=== PATIENT | male | born 1950 | race Caucasian/White ===

== ENCOUNTER 2017-01-19 20:45 | Inpatient (IN) ==
[2017-01-19] MEDS ORDERED: cefTRIAXone 1,000 MG in SODIUM CHLORIDE 0.9% 100 ML IV STA (21:30)
[2017-01-19] MEDS ORDERED: SODIUM CHLORIDE 0.9% 500 ML IV STA (21:30)
[2017-01-19] MEDS ORDERED: methylPREDNISolone SOD SUC 125 MG/2 ML VIAL IV STA (21:30)
[2017-01-19] MEDS ORDERED: ALBUTEROL NEB SOLN 5 MG/ML 20 ML/BOTTLE CONT NEB STA (21:30)
[2017-01-19] MEDS ORDERED: cefTRIAXone 1,000 MG VIAL ONE (21:56)
[2017-01-19] MEDS ORDERED: methylPREDNISolone SOD SUC 125 MG/2 ML VIAL ONE (21:56)
[2017-01-19] MEDS ORDERED: ONDANSETRON 4 MG/2 ML VIAL ONE ×2 (21:57→21:58)
[2017-01-19] MEDS ORDERED: METOCLOPRAMIDE 10 MG/2 ML VIAL ONE (21:58)
[2017-01-19 22:05] LABS: Basophils # 0.1 10*3/uL (0.0-0.2); Basophils % 0.8 % (0.0-0.8); Eosinophils # 0.3 10*3/uL (0.0-0.87); Eosinophils % 2.9 % (0.00-10.9); Hematocrit 46.8 VOL% (42.0-52.0); Hemoglobin 16.3 GM/DL (14.0-18.0); Immature Granulocytes % 0.8 %; Lymphocytes # 1.5 10*3/uL (1.4-4.0); Lymphocytes % 12.7 % (21.2-54.2); Mean Corpuscular HGB Conc 34.8 GM/DL (32-36); Mean Corpuscular Hemoglobin 33 PG (27-34); Mean Platelet Volume 9.7 FL (9.6-12.0); Monocytes # 0.9 10*3/uL (0.11-0.8); Monocytes % 7.2 % (1.7-12.7); Neutrophils % 75.6 % (38.7-73.9); Platelet Count 198 T/CUMM (130-400); Red Blood Count 4.98 MC/CUMM (3.8-5.5); Red Cell Distribution Width 14.9 % (9.3-17.3); White Blood Count 11.8 T/CUMM (4-12)
--- NOTE | 2017-01-19 22:33 | Emergency Department Note ---
IFilomena Emily, am scribing for, and in the presence of, Td Hoskins MD 22: 29. Gato Bernal Charles R, MD, personally performed the services described in this documentation, ascribed by Estela Butt in my presence, and it is both accurate and complete . Arrival - Arrival Chief Complaint: Syncope Stated Complaint: blacked out 3 times in 2 days,dizzy, nauseated ED Nursing Triage Note: Patient states that he had a syncopal episode yesterday and today. States that he became short of breath and began having chest pain just prior to both events. Patient denies history of heart problems and complains of nausea and dizziness. Prostate enlargement and HTN. Mode of Arrival: Wheelchair Limitations: No Limitations Source: Patient, Family Time Seen by Provider: 01/19/17 21:30 - History of Present Illness HPI Narrative: Pt is a 66 y/o male who came to ED with c/o syncopal episode with chest pain and SOB that suddenly happened earlier tonight. Family reports pt blacked out, grabbing at his chest, then pt states he heard loud chirping/buzzing and eyes were closed. Waking up he was dizzy and nauseated, in which he still is in ED. Pt reports having coughing episode night before with excessive coughing and passed out, SOB and chest pain then as well. Pt was seen on of last week by Dr. Yuriy Acevedo for cough (BP was 100/80) and given steroids and abx that was taken once a day for 7 days. Pt admits to lifting weights every Tuesday/, takes Flomax once a day, and hydrochlorothiazide. Pt denies any HANSON, visual issues, or GERD. Family notes pt's memory hasn't been like the norm. Pt states he does like sleeping on left side and thinks he snores due to waking up gasping for air. Onset (ago): hour(s) Consistency: constant, intermittent Severity: moderate Severity scale (1-10): 5 Quality: aching Allergies/Adverse Reactions: Allergies Allergy/AdvReac Type Severity Reaction Status Date / Time No Known Allergies Allergy Verified 06/06/16 18:48 Home Medications: Home Medications Medication Instructions Recorded Confirmed Type Tamsulosin [Flomax] 0.4 mg PO DAILY 11/04/14 01/19/17 History hydroCHLOROthiazide 25 mg PO DAILY 06/06/16 01/19/17 History [Hydrochlorothiazide] Acetaminophen Tab [Tylenol Tab] 650 mg PO Q6H PRN #0 tablet 06/11/16 01/19/17 Rx Alum/Mag/Simeth Max Str Liquid 15 ml PO Q6H PRN #0 udcup 06/11/16 01/19/17 Rx [Mylanta Max Strength Liquid] Amoxicillin/Clav Tab [Augmentin 500 mg PO Q8H 10 Days 06/11/16 01/19/17 Rx Tab] Chlorhexidine 4% Soln [Hibiclens] 1 applic TOP DAILY #118 ml 06/11/16 01/19/17 Rx Cyclobenzaprine [Flexeril] 10 mg PO TID #30 tablet 06/11/16 01/19/17 Rx Docusate Sodium Cap [Colace Cap] 100 mg PO DAILY #20 capsule 06/11/16 01/19/17 Rx HYDROcodone/ACETAMIN 7.5-325 1 tablet PO Q6H PRN #30 tablet 06/11/16 01/19/17 Rx [[place] 7.5-325] Meloxicam [Mobic] 7.5 mg PO DAILY #30 tablet 06/11/16 01/19/17 Rx Allopurinol 300 mg PO DAILY 01/19/17 01/19/17 History Benzonatate 200 mg PO TID 01/19/17 01/19/17 History Codeine Phosphate/Guaifenesin 10 ml PO QID 01/19/17 01/19/17 History [Guaifenesin-Codeine Syrup] Review of System - Review of System 12 point system: reviewed and no additional remarkable complaints except as stated - Review of System Constitutional: Absent: chills, fever, weakness Head/Ears/Nose/Throat: Absent: nasal drainage Respiratory: Present: cough, respiratory distress Cardiovascular: Present: chest pain, syncope (2x) Gastrointestinal: Present: nausea, vomiting. Absent: abdominal pain Musculoskeletal: Absent: arm pain, back pain, leg pain, neck pain Skin: Absent: rash Neurological: Present: other (dizziness). Absent: headache, numbness, paresthesias, vertigo Medical,Surgical,& Family Hx - Medical History Cardio: History of: Hypertension Neurology: No history of: Brain Aneurysm, Seizures HEENT: History of: Eye Problem (GLASSES) Respiratory: History of: Pneumonia Genitourinary: History of: Kidney Stones Gastrointestinal: History of: Polyps (2 polyps removed 5 yrs ago) Musculoskeletal: History of: Musculoskeletal Problems (PAIN IN RIGHT KNEE) - Surgical History Neurologic Surgeries: Patient denies: Brain Aneurysm, Neurologic Surgery Abdominal Surgeries: Surgical HX of: Abdominal Surgery, Colonoscopy, Hernia Repair (at age 3-4) - Family History Family History: Reports;: Family Diabetes (FATHER), Family Stroke (PATERNAL GRANDFATHER) - Social History Smoking Status: Never smoker Frequency of Alcohol Use: Frequently Type of Drug Use: None Marital Status: Lives With:: Spouse Functional capacity: independent ambulation Exam Vital Signs: Vital Signs Temperature 98.1 F 01/19/17 21:14 Pulse Rate 86 01/19/17 23:00 Respiratory Rate 18 01/19/17 23:00 Blood Pressure 140/68 01/19/17 23:00 O2 Sat by Pulse Oximetry 100 01/19/17 23:00 - General General appearance: alert, in no apparent distress, obese - Head Head exam: Present: atraumatic, normocephalic - Eye Eye exam: Present: PERRL, EOMI - ENT ENT exam: Present: mucous membranes moist. Absent: mucous membranes dry - Neck Neck exam: Present: full ROM, trachea midline - Chest Chest inspection: Present: symmetric chest wall rise - Respiratory Respiratory exam: Present: wheezes (diffusely), other (constant coughing with bronchiole spasms) - Cardiovascular Cardiovascular exam: Present: regular rate, normal rhythm, normal heart sounds - Extremities Exam Extremities exam: Present: full ROM, pedal edema. Absent: tenderness - Neurological Exam Neurological exam: Present: alert, oriented X3, CN II-XII intact. Absent: motor sensory deficit - Psychiatric Psychiatric exam: Present: normal affect, normal mood - Skin Skin exam: Present: warm, diaphoresis (clammy) Course - Consultations Consultation #1: Dr. Leona Raines will admit for Dr. Raul Acevedo Time: 23:29 Results - Labs CBC & BMP: 01/19/17 21:41 01/19/17 21:41 Lab Results: I have reviewed the patients labs Labs: Laboratory Tests 01/19/17 01/19/17 21:41 21:41 WBC 11.8 RBC 4.98 Hgb 16.3 Hct 46.8 Neut % (Auto) 75.6 H Lymph % (Auto) 12.7 L Neut # (Auto) 9.0 H Lymph # (Auto) 1.5 [place] # (Auto) 0.9 H D-Dimer, Quantitative <= 0.5 Laboratory Tests 01/19/17 01/19/17 01/19/17 21:41 21:41 21:41 WBC 11.8 RBC 4.98 Hgb 16.3 Hct 46.8 Plt Count 198 Neut % (Auto) 75.6 H Lymph % (Auto) 12.7 L Neut # (Auto) 9.0 H [place] # (Auto) 0.9 H D-Dimer, Quantitative <= 0.5 B-Natriuretic Peptide 16 Laboratory Tests 01/19/17 21:41 Sodium 137 Potassium 3.5 Chloride 98 Carbon Dioxide 27 Anion Gap 15.5 H BUN 27 H Creatinine 1.20 BUN/Creatinine Ratio 22.00 H Glucose 114 H AST 38 H ALT 50 Total Creatine Kinase 299 CK-MB (CK-2) 3.9 H Troponin I < 0.015 - Diagnostic Findings Procedure: CT: report reviewed by me (Head wo con: There is no acute intracranial abnormality.) Disposition Clinical Impression: Vasovagal syncope, Bronchitis, Syncope and collapse Case discussed with: patient, patient's family Disposition: Still a Patient Condition: Stable Time of Disposition: 23:30
[2017-01-19 23:17] LABS: Alanine Aminotransferase 50 U/L (16-61); Albumin 3.8 G/DL (3.4-5.0); Alkaline Phosphatase 76 U/L (45-117); Aspartate Amino Transferase 38 U/L (0-37); Blood Urea Nitrogen 27 MG/DL (7-18); Glucose 114 MG/DL (74-106); Magnesium 1.9 MG/DL (1.8-2.4); Osmolality,Calculated 278.8 MOS/KG (273-304); Potassium 3.5 MMOL/L (3.5-5.1); Sodium 137 MMOL/L (136-145); Total Protein 7.2 G/DL (6.4-8.3); Troponin I Only < 0.015 NG/ML (0.00-0.045)
[2017-01-19] MEDS ORDERED: ALUMINUM/MAGNES/SIMETH MAX STR 30 ML UDCUP PO PRN (23:50)
[2017-01-19] MEDS ORDERED: ACETAMINOPHEN 325 MG TABLET PO PRN ×2 (23:50)
[2017-01-19] MEDS ORDERED: ONDANSETRON 4 MG/2 ML VIAL IV PRN (23:50)
[2017-01-19] MEDS ORDERED: ALBUTEROL/IPRATROPIUM 3 ML NEB RESP TX PRN (23:50)
--- NOTE | 2017-01-19 23:53 | EKG Report ---
Stationary ECG Study [facility] ER Test Date: 01/19/2017 9:25:27 PM Pat Name: GUNNER WALKER Department: Room: 294 Gender: M [employer] Supervisor: JOSE R : 1950 Requested by: Td Santoro Order Number: [id number] Sony MD: KIRK YATES Intervals [place] Rate: 77 P: 44 VT: 187 QRS: 36 QRSD: 114 T: 50 QT: 389 QTc: 421 Interpretive Statements SINUS RHYTHM Electronically Signed On 01-20-17 16:03:34 CDT by KIRK YATES [email or web address]
[2017-01-20] MEDS ORDERED: cefTRIAXone 1,000 MG in SODIUM CHLORIDE 0.9% 100 ML IV SCH (00:30)
[2017-01-20] MEDS ORDERED: ENOXAPARIN 40 MG/0.4 ML SYRINGE ONE (00:39)
[2017-01-20] MEDS: AMOXICILLIN/CLAV 500 MG TABLET PO SCH ×3 (00:42→16:25)
[2017-01-20] MEDS: SODIUM CHLORIDE 0.9% 1,000 ML IV SCH ×2 (00:42→14:07)
[2017-01-20 01:58] LABS: Basophils % 0.4 % (0.0-0.8); Eosinophils % 0.2 % (0.00-10.9); Hematocrit 44.7 VOL% (42.0-52.0); Hemoglobin 15.1 GM/DL (14.0-18.0); Immature Granulocytes % 0.7 %; Immature Granulocytes Absolute 0.07 #; Lymphocytes # 0.5 10*3/uL (1.4-4.0); Lymphocytes % 5.1 % (21.2-54.2); Mean Corpuscular HGB Conc 33.8 GM/DL (32-36); Mean Corpuscular Hemoglobin 32 PG (27-34); Mean Corpuscular Volume 94.9 FL (87-102); Mean Platelet Volume 10.1 FL (9.6-12.0); Monocytes # 0.1 10*3/uL (0.11-0.8); Monocytes % 1.2 % (1.7-12.7); Neutrophils # 8.9 10*3/uL (1.4-7.4); Neutrophils % 92.4 % (38.7-73.9); Platelet Count 179 T/CUMM (130-400); Red Blood Count 4.71 MC/CUMM (3.8-5.5); Red Cell Distribution Width 14.9 % (9.3-17.3); White Blood Count 9.7 T/CUMM (4-12)
[2017-01-20 02:27] LABS: Albumin 3.6 G/DL (3.4-5.0); Bilirubin,Total 0.5 MG/DL (0.2-1.0); Calcium 8.6 MG/DL (8.5-10.1); Magnesium 1.8 MG/DL (1.8-2.4); Osmolality,Calculated 286.5 MOS/KG (273-304); Potassium 3.6 MMOL/L (3.5-5.1); Risk Ratio 2.46; Total Protein 6.9 G/DL (6.4-8.3)
[2017-01-20 02:28] LABS: Troponin I Only < 0.015 NG/ML (0.00-0.045)
[2017-01-20 02:33] LABS: Band Neutrophils 2 % (0-10); Lymphocytes 3 % (20-55); Segmented Neutrophils 94 % (50-85)
[2017-01-20 02:34] LABS: Platelet Estimate Normal; Total Cells Counted 100
[2017-01-20] MEDS: methylPREDNISolone SOD SUC 40 MG/1 ML VIAL IV SCH ×3 (05:31→21:15)
--- NOTE | 2017-01-20 06:37 | CT Report ---
History is syncope The ventricles are normal in size. No acute intracranial hemorrhage, mass effect, or evidence of acute cortical stroke seen. Impression: No acute intracranial pathology seen. The CT exam was performed using one or more of the following dose reduction techniques: Automated exposure control, adjustment of the mA and/or kV according to patient size, or use of iterative reconstruction technique. PROCEDURE INTERPRETED AT [facility] DEPARTMENT OF RADIOLOGY Final Report Signed by: Dr. Alexa Lee
--- NOTE | 2017-01-20 07:48 | Ultrasound Report ---
History is syncope and dizziness Grayscale, spectral Doppler, and color flow analysis performed and interpreted There is a minimal amount of the early soft plaque in the proximal internal carotid arteries Maximum systolic velocities are 70 on the right and 51 on the left Peak systolic ratios of 0.6 in the right and 0.7 on the left There is antegrade flow in both vertebral arteries Impression: Minimal amount of plaque with less than 50% diameter stenoses bilaterally by NASCET criteria PROCEDURE INTERPRETED AT [facility] DEPARTMENT OF RADIOLOGY Final Report Signed by: Dr. Alexa Lee
--- NOTE | 2017-01-20 07:49 | XRay Report ---
History is short of breath Chest, 2 views Comparison 01/19/2017 The heart is mildly enlarged There is slight increasing interstitial markings without consolidative infiltrates seen. Impression: Minimal interstitial infiltrates versus edema PROCEDURE INTERPRETED AT [facility] DEPARTMENT OF RADIOLOGY Final Report Signed by: Dr. Alexa Lee
--- NOTE | 2017-01-20 08:19 | EKG Report ---
Stationary ECG Study [facility] Test Date: 01/20/2017 8:18:19 AM Pat Name: GUNNER WALKER Department: Room: 294 Gender: M Miller [employer] Process: DAMI : 1950 Requested by: Td Santoro Order Number: [id number] [place] MD: KIRK YATES Intervals [place] Rate: 74 P: 43 WA: 191 QRS: 13 QRSD: 110 T: 56 QT: 393 QTc: 420 Interpretive Statements SINUS RHYTHM LOW QRS VOLTAGE IN PRECORDIAL LEADS POSSIBLE ANTERIOR MYOCARDIAL INFARCTION, PROBABLY OLD Electronically Signed On 01-21-17 17:32:52 CDT by KIRK YATES [email or web address]
--- NOTE | 2017-01-20 08:32 | XRay Report ---
History short of breath Comparison 06/06/2016 Mediastinal contours unchanged No congestive failure or confluent infiltrate is seen Impression: Borderline heart size without CHF PROCEDURE INTERPRETED AT [facility] DEPARTMENT OF RADIOLOGY Final Report Signed by: Dr. Alexa Lee
[2017-01-20] MEDS ORDERED: DOCUSATE SODIUM 100 MG CAPSULE PO SCH (09:00)
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
--- NOTE | 2017-01-20 10:49 | Cardiology Consult Note ---
<Nelly Herrera E - Last Filed: 01/20/17 10:12> Assessment and Plan - Time spent with patient Time spent with patient: Greater than 30 minutes (due to assessemtn, plan, and documentation) (1) Syncope and collapse Status: Acute Assessment and plan: Suspect this is related to his bronchitis and severe coughing episodes. It's possible he's having a vasovagal syncopal response. An echocardiogram has been ordered and will be reviewed. He has had no dysrhythmias upon review of his environmental monitoring specialist. There does not seem to be a significant cardiac component to his syncope, but I will further discuss with Dr. Hirsch and await his additional recommendations regarding further cardiac workup. Current Visit: Yes (2) Hypertension Status: Chronic Assessment and plan: Fairly well controlled. He has had a couple of elevated readings since admission. His home dose of HCTZ has been continued. Will continue to monitor and adjust accordingly. Current Visit: Yes (3) Bronchitis Status: Acute Assessment and plan: Dr. Acevedo is following. He has been started on antibiotics and bronchospasm medications. 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 Hirsch PCP: Dr. Devonte Acevedo Mr. Santillan is a 66 year old male with a history of mild hypertension, kidney stones, recurrent pneumonia and bronchitis. Risk factors are significant for: Obesity, age, hypertension. He is a non-smoker and reports he only smoked for a few years while he was at [facility], and only when he would go to [employer]. He does drink wine socially. He has a family history of coronary artery disease and states his dad had CABG at age 78. Mr. Santillan presented to the emergency room last night after having 3 syncope episodes in the past 2 days. He tells me that he has had bronchitis and coughing for the past 3-4 weeks. He states that he was seen by Dr. Acevedo in clinic and was given steroids and antibiotics for treatment and felt better but subsequently became worse again. He states the past couple of days he has had some very severe coughing episodes and has subsequently blacked out on 3 occasions. Each episode of syncope is preceded by a severe coughing episode. He reports that he feels as though he someone cuts off his air and he cannot breathe. He reports he was at home cooking supper the night before last and had a coughing episode and subsequently woke up on the floor. He reports he had only had 1-2 glasses of wine prior to this and is unsure how long he was out for. He states later on that evening, he was in his bedroom and had a coughing episode and felt as if he can get his breath and then woke up on the floor. Last night, he was sitting in the living room watching [employer] [place] with his and had a severe coughing episode and his tells him that he passed out. She also reports that it looked as if he stopped breathing and he states he woke up feeling dizzy and having a buzzing sensation in his ears. At that time he was also very nauseated. He reports this episode concerned both him and his and he decided to seek further evaluation in the emergency room. Upon his arrival to the emergency room, he reports he was still nauseous and had one episode of vomiting. He denies any chest pains prior to or immediately after these episodes but states it only feels as though he could not breathe. He denies recent palpitations and had no loss of bowel or bladder function. Mr. Santillan tells me that he is in better shape now than he has been in 20 years. He reports he does weight training on Tuesdays and at noon with [facility] and has been doing this for the past 6 months. He reports he is up to 265 pounds on bench press. He denies any recent exertional angina or shortness of breath even with his workouts. Mr. Santillan tells me that his blood pressure began after he was placed on a medication for kidney stones. He reports this was subsequently stopped by Dr. David Jade after he had very high blood pressure and he was placed on hydrochlorothiazide. He reports last week at Dr. Acevedo's office, his blood pressure was 100/80. Upon arrival to our facility, his EKG shows no acute ST changes. His troponins are negative along with negative CPKs. His CK-MB is minimally elevated. BNP is 15. His head CT was negative. Carotid Dopplers showed less than 50% diameter stenosis bilaterally. His vital signs have been stable. ASSESSMENT/PLAN: 1. SYNCOPE - Suspect this is related to his bronchitis and severe coughing episodes. It's possible he's having a vasovagal syncopal response. An echocardiogram has been ordered and will be reviewed. He has had no dysrhythmias upon review of his environmental monitoring specialist. There does not seem to be a significant cardiac component to his syncope, but I will further discuss with Dr. Hirsch and await his additional recommendations regarding further cardiac workup. 2. HYPERTENSION - Fairly well controlled. He has had a couple of elevated readings since admission. His home dose of HCTZ has been continued. Will continue to monitor and adjust accordingly. 3. BRONCHITIS - Dr. Acevedo is following. He has been started on antibiotics and bronchospasm medications. CC: Devonte Acevedo, DO - Home Medications and Allergies Home Medications: Home Medications Medication Instructions Recorded Confirmed Type Tamsulosin [Flomax] 0.4 mg PO DAILY 11/04/14 01/19/17 History hydroCHLOROthiazide 25 mg PO DAILY 06/06/16 01/19/17 History [Hydrochlorothiazide] Acetaminophen Tab [Tylenol Tab] 650 mg PO Q6H PRN #0 tablet 06/11/16 01/19/17 Rx Alum/Mag/Simeth Max Str Liquid 15 ml PO Q6H PRN #0 udcup 06/11/16 01/19/17 Rx [Mylanta Max Strength Liquid] Amoxicillin/Clav Tab [Augmentin 500 mg PO Q8H 10 Days 06/11/16 01/19/17 Rx Tab] Chlorhexidine 4% Soln [Hibiclens] 1 applic TOP DAILY #118 ml 06/11/16 01/19/17 Rx Cyclobenzaprine [Flexeril] 10 mg PO TID #30 tablet 06/11/16 01/19/17 Rx Docusate Sodium Cap [Colace Cap] 100 mg PO DAILY #20 capsule 06/11/16 01/19/17 Rx HYDROcodone/ACETAMIN 7.5-325 1 tablet PO Q6H PRN #30 tablet 06/11/16 01/19/17 Rx [[place] 7.5-325] Meloxicam [Mobic] 7.5 mg PO DAILY #30 tablet 06/11/16 01/19/17 Rx Allopurinol 300 mg PO DAILY 01/19/17 01/19/17 History Benzonatate 200 mg PO TID 01/19/17 01/19/17 History Codeine Phosphate/Guaifenesin 10 ml PO QID 01/19/17 01/19/17 History [Guaifenesin-Codeine Syrup] Allergies/Adverse Reactions: Allergies Allergy/AdvReac Type Severity Reaction Status Date / Time No Known Allergies Allergy Verified 06/06/16 18:48 Review of systems: - Constitutional: Present: As per HPI. Absent: anorexia, chills, daytime sleepiness, excessive sweating, fever(s), frequent falls, headache(s), increased appetite, lethargy, malaise, night sweats, stops breathing during sleep, weakness, weight gain, weight loss, fatigue. - EENT Eyes: Present: As per HPI. Absent: blurry vision, diplopia, loss of vision Ears: Present: "buzzing" in ears following syncopal episode, As per HPI. Absent : decreased hearing, ear discharge, ear pain Nose, mouth and throat: Present: nasal congestion, As per HPI. Absent: dysphagia , epistaxis, headache(s), hoarseness, lip swelling, neck mass, neck pain, sinus pressure, sore throat, throat swelling, tongue swelling, vertigo - Cardiovascular: Present: dyspnea, as per HPI. Absent: chest pain at rest, chest pain with activity, dyspnea on exertion, edema, claudication, diaphoresis , radiating jaw, neck or arm pain, lightheadedness, orthopnea, palpitations, PND - Respiratory: Present: dyspnea, cough, wheezing, snoring, as per HPI. Absent: dyspnea on exertion, hemoptysis, pain on inspiration - Gastrointestinal: Present: nausea, vomitingAs per HPI. Absent: abdominal pain , bloating, change in bowel habits, constipation, diarrhea, heartburn, hematemesis, hematochezia, loose stools, melena, - Genitourinary: Present: As per HPI. Absent: difficulty urinating, dysuria, flank pain, hematuria, nocturia, urinary frequency, urinary incontinence - Musculoskeletal: Present: As per HPI. Absent: arthralgias, back pain, joint swelling, limited range of motion, muscle cramps, muscle weakness, myalgias - Neurological: Present: syncope, dizziness, As per HPI. Absent: abnormal gait , abnormal speech, behavioral changes, confusion, convulsions, disequilibrium, focal weakness, frequent falls, headache(s), memory loss, numbness, paresthesias , radicular pain, tremor(s) - Psychiatric: Present: As per HPI. Absent: anxiety, confusion, depression, panic attacks - Endocrine: Present: As per HPI. Absent: cold intolerance, fatigue, heat intolerance, polydipsia, polyphagia - Hematologic/Lymphatic: Present: As per HPI. Absent: easy bleeding, easy bruising, lymphadenopathy Medical,Surgical,& Family Hx - Medical History Cardio: History of: Hypertension Neurology: No history of: Brain Aneurysm, Seizures HEENT: History of: Eye Problem (GLASSES) Respiratory: History of: Bronchitis, Pneumonia Genitourinary: History of: Kidney Stones Gastrointestinal: History of: Polyps (2 polyps removed 5 yrs ago) Musculoskeletal: History of: Musculoskeletal Problems (PAIN IN RIGHT KNEE) - Surgical History Neurologic Surgeries: Patient denies: Brain Aneurysm, Neurologic Surgery Abdominal Surgeries: Surgical HX of: Abdominal Surgery, Colonoscopy, Hernia Repair (at age 3-4) - Family History Family History: Reports;: Family Diabetes (FATHER), Family Stroke (PATERNAL GRANDFATHER) - Social History Smoking Status: Never smoker Frequency of Alcohol Use: Frequently Type of Drug Use: None Marital Status: Lives With:: Spouse Functional capacity: independent ambulation Physical Examination Vital Signs Temp Pulse Resp BP Pulse Ox 98.1 F 77 22 179/88 93 L 01/19/17 21:10 01/19/17 21:10 01/19/17 21:10 01/19/17 21:10 01/19/17 21:10 Exam: General appearance: Pleasant and cooperative. Obese, no acute distress. O2 in place via NBP. Head exam: Present: normal inspection, normocephalic, atraumatic. Absent: hematoma, laceration Eye exam: Present: EOMI. Absent: conjunctival injection, nystagmus, periorbital swelling, scleral icterus, laceration to eyelids Pupils: Present: PERRL. Absent: constricted, dilated, fixed, irregular, unequal ENT exam: Present: normal exam, normal external ear exam Neck exam: Present: normal inspection. Absent: lymphadenopathy, meningismus, tenderness, thyromegaly, carotid bruit Respiratory exam: Present: clear to auscultation bilaterally. Absent: accessory muscle use, chest wall tenderness, rales, rhonchi, wheezing. Cardiovascular exam: Present: regular rate and rhythm. Absent: gallop, JVD, rubs, murmur GI/Abdominal exam: Present: normal bowel sounds, soft. Absent: distended, firm , guarding, hernia, mass, tenderness, rebound. Extremities exam: Present: normal inspection, normal capillary refill. Upper extremity pulses 2+. Lower extremity pulses 2+. Absent: calf tenderness, edema Musculoskeletal: Present: No Fluid Collection, No Pain, Normal Range of Motion Back exam: Present: normal inspection. Absent: muscle spasm, vertebral tenderness Neurological exam: Present: alert, oriented X3, grossly intact without resting or essential tremor Psychiatric exam: Present: normal affect, normal mood Skin exam: Present: normal color, warm, dry, intact except for small abrasion to right elbow, approximately dime to nickel size in diameter. Absent: cyanosis , diaphoretic, rash, urticaria Result/EKG - Labs CBC & BMP: 01/20/17 01:36 01/20/17 01:36 Lab Results: I have reviewed the past 24 hour labs Labs: Laboratory Results - last 24 hr 01/19/17 01/19/17 01/19/17 21:41 21:41 21:41 WBC 11.8 RBC 4.98 Hgb 16.3 Hct 46.8 MCV 94.0 MCH 33 MCHC 34.8 RDW 14.9 Plt Count 198 MPV 9.7 Neut % (Auto) 75.6 H Lymph % (Auto) 12.7 L Meeker % (Auto) 7.2 Eos % (Auto) 2.9 Baso % (Auto) 0.8 Neut # (Auto) 9.0 H Lymph # (Auto) 1.5 Meeker # (Auto) 0.9 H Eos # (Auto) 0.3 Baso # (Auto) 0.1 Total Counted Immature Gran % 0.8 Nucleated RBC % 0.0 Immature Gran # 0.10 Segmented Neutrophils Band Neutrophils Lymphocytes Monocytes Nucleated RBCs # 0.00 Platelet Estimate Immature Plt Fraction 0.0 D-Dimer, Quantitative <= 0.5 Sodium 137 Potassium 3.5 Chloride 98 Carbon Dioxide 27 Anion Gap 15.5 H BUN 27 H Creatinine 1.20 GFR Calculation 98 BUN/Creatinine Ratio 22.00 H Glucose 114 H POC Glucose Calculated Osmolality 278.8 Calcium 9.0 Magnesium 1.9 Total Bilirubin 0.50 AST 38 H ALT 50 Alkaline Phosphatase 76 Total Creatine Kinase 299 CK-MB (CK-2) 3.9 H Troponin I < 0.015 B-Natriuretic Peptide Total Protein 7.2 Albumin 3.8 Globulin 3.4 Albumin/Globulin Ratio 1.1 Triglycerides Cholesterol LDL Cholesterol VLDL Cholesterol HDL Cholesterol Heart Disease Risk Ratio 01/19/17 01/19/17 01/20/17 21:41 23:37 01:36 WBC RBC Hgb Hct MCV MCH MCHC RDW Plt Count MPV Neut % (Auto) Lymph % (Auto) Meeker % (Auto) Eos % (Auto) Baso % (Auto) Neut # (Auto) Lymph # (Auto) Meeker # (Auto) Eos # (Auto) Baso # (Auto) Total Counted Immature Gran % Nucleated RBC % Immature Gran # Segmented Neutrophils Band Neutrophils Lymphocytes Monocytes Nucleated RBCs # Platelet Estimate Immature Plt Fraction D-Dimer, Quantitative Sodium Potassium Chloride Carbon Dioxide Anion Gap BUN Creatinine GFR Calculation BUN/Creatinine Ratio Glucose POC Glucose 130 H Calculated Osmolality Calcium Magnesium Total Bilirubin AST ALT Alkaline Phosphatase Total Creatine Kinase 270 CK-MB (CK-2) 3.7 H Troponin I < 0.015 B-Natriuretic Peptide 16 Total Protein Albumin Globulin Albumin/Globulin Ratio Triglycerides Cholesterol LDL Cholesterol VLDL Cholesterol HDL Cholesterol Heart Disease Risk Ratio 01/20/17 01/20/17 01/20/17 01:36 01:36 01:36 WBC 9.7 RBC 4.71 Hgb 15.1 Hct 44.7 MCV 94.9 MCH 32 MCHC 33.8 RDW 14.9 Plt Count 179 MPV 10.1 Neut % (Auto) 92.4 H Lymph % (Auto) 5.1 L Meeker % (Auto) 1.2 L Eos % (Auto) 0.2 Baso % (Auto) 0.4 Neut # (Auto) 8.9 H Lymph # (Auto) 0.5 L Meeker # (Auto) 0.1 L Eos # (Auto) 0.0 Baso # (Auto) 0.0 Total Counted 100 Immature Gran % 0.7 Nucleated RBC % 0.0 Immature Gran # 0.07 Segmented Neutrophils 94 H Band Neutrophils 2 Lymphocytes 3 L Monocytes 1 L Nucleated RBCs # 0.00 Platelet Estimate Normal Immature Plt Fraction 0.0 D-Dimer, Quantitative Sodium 139 Potassium 3.6 Chloride 101 Carbon Dioxide 27 Anion Gap 14.6 BUN 28 H Creatinine 1.30 GFR Calculation 87 BUN/Creatinine Ratio 21.00 H Glucose 169 H POC Glucose Calculated Osmolality 286.5 Calcium 8.6 Magnesium 1.8 Total Bilirubin 0.50 AST 35 ALT 47 Alkaline Phosphatase 75 Total Creatine Kinase CK-MB (CK-2) Troponin I B-Natriuretic Peptide 15 Total Protein 6.9 Albumin 3.6 Globulin 3.3 Albumin/Globulin Ratio 1.0 L Triglycerides 125 Cholesterol 177 LDL Cholesterol 78.0 VLDL Cholesterol 25.0 HDL Cholesterol 72 H Heart Disease Risk Ratio 2.46 - EKG EKG results: interpreted by me, sinus rhythm <Shelia Hirsch - Last Filed: 01/20/17 12:56> Assessment and Plan (1) Cough syncope Status: Acute Assessment and plan: Recommend event monitor as outpatient. No further workup at this time. Current Visit: Yes (2) Obesity Status: Chronic Current Visit: Yes Qualifiers: Obesity type: due to excess calories Body mass index: BMI 45.0-49.9 (3) Bronchitis Status: Acute Assessment and plan: Appears to be. The precipitating factor of his cough. Given the fact that he appears to have cough syncope would recommend that his cough be treated aggressively and he be particularly called cautious with high risk behavior during the time of his bronchitis and coughing. Particularly flying driving etc. Current Visit: Yes (4) Hypertension Status: Chronic Assessment and plan: Due to the patient's history of nephrolithiasis consider changing this medication continue for now Current Visit: Yes History of Present Illness - Data of Consult Patient: new to practice - Consult Narrative History of present illness: Mr. Santillan is a 66 year old male with the above history of present illness. He has had classic cough syncope 3 now once witnessed by his . 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 He denies any cardiac symptoms such as chest pain he has no associated nausea or diaphoresis. He has not had any palpitations. He has reported problems with hypokalemia hand cramps and leg cramps etc. while getting too hot and sweaty and taking hydrochlorothiazide. It seems that is the only syncopal episodes have been while coughing with his associated bronchitis. He is very active and works out at the gym and has not had syncope there despite being able to bench press almost 300 pounds which is his goal by [place]. Given his propensity to fly and these episodes I feel that he may benefit from an event monitor just to document no bradycardia. I performed carotid sinus massage at the bedside and he did not experience any change in his heart rate. I reviewed his echocardiogram and his carotid Dopplers before this. His echocardiogram is normal within the limitations provided. He does not have pulmonary hypertension or right-sided chamber enlargement. I recommended that he wear an event monitor for 30 days and follow -up in 1 month. From a cardiovascular standpoint nothing further to add at this time. We will continue to monitor on telemetry while in the hospital. CC: Devonte Acevedo, Review of systems: Syncope as per HPI. All other review of systems as above Physical Examination Vital Signs Temp Pulse Resp BP Pulse Ox 98.1 F 77 22 179/88 93 L 01/19/17 21:10 01/19/17 21:10 01/19/17 21:10 01/19/17 21:10 01/19/17 21:10 Result/EKG - Labs CBC & BMP: 01/20/17 01:36 01/20/17 01:36 Labs: Laboratory Results - last 24 hr 01/19/17 01/19/17 01/19/17 21:41 21:41 21:41 WBC 11.8 RBC 4.98 Hgb 16.3 Hct 46.8 MCV 94.0 MCH 33 MCHC 34.8 RDW 14.9 Plt Count 198 MPV 9.7 Neut % (Auto) 75.6 H Lymph % (Auto) 12.7 L Meeker % (Auto) 7.2 Eos % (Auto) 2.9 Baso % (Auto) 0.8 Neut # (Auto) 9.0 H Lymph # (Auto) 1.5 Meeker # (Auto) 0.9 H Eos # (Auto) 0.3 Baso # (Auto) 0.1 Total Counted Immature Gran % 0.8 Nucleated RBC % 0.0 Immature Gran # 0.10 Segmented Neutrophils Band Neutrophils Lymphocytes Monocytes Nucleated RBCs # 0.00 Platelet Estimate Immature Plt Fraction 0.0 D-Dimer, Quantitative <= 0.5 Sodium 137 Potassium 3.5 Chloride 98 Carbon Dioxide 27 Anion Gap 15.5 H BUN 27 H Creatinine 1.20 GFR Calculation 98 BUN/Creatinine Ratio 22.00 H Glucose 114 H POC Glucose Calculated Osmolality 278.8 Calcium 9.0 Magnesium 1.9 Total Bilirubin 0.50 AST 38 H ALT 50 Alkaline Phosphatase 76 Total Creatine Kinase 299 CK-MB (CK-2) 3.9 H Troponin I < 0.015 B-Natriuretic Peptide Total Protein 7.2 Albumin 3.8 Globulin 3.4 Albumin/Globulin Ratio 1.1 Triglycerides Cholesterol LDL Cholesterol VLDL Cholesterol HDL Cholesterol Heart Disease Risk Ratio 01/19/17 01/19/17 01/20/17 21:41 23:37 01:36 WBC RBC Hgb Hct MCV MCH MCHC RDW Plt Count MPV Neut % (Auto) Lymph % (Auto) Meeker % (Auto) Eos % (Auto) Baso % (Auto) Neut # (Auto) Lymph # (Auto) Meeker # (Auto) Eos # (Auto) Baso # (Auto) Total Counted Immature Gran % Nucleated RBC % Immature Gran # Segmented Neutrophils Band Neutrophils Lymphocytes Monocytes Nucleated RBCs # Platelet Estimate Immature Plt Fraction D-Dimer, Quantitative Sodium Potassium Chloride Carbon Dioxide Anion Gap BUN Creatinine GFR Calculation BUN/Creatinine Ratio Glucose POC Glucose 130 H Calculated Osmolality Calcium Magnesium Total Bilirubin AST ALT Alkaline Phosphatase Total Creatine Kinase 270 CK-MB (CK-2) 3.7 H Troponin I < 0.015 B-Natriuretic Peptide 16 Total Protein Albumin Globulin Albumin/Globulin Ratio Triglycerides Cholesterol LDL Cholesterol VLDL Cholesterol HDL Cholesterol Heart Disease Risk Ratio 01/20/17 01/20/17 01/20/17 01:36 01:36 01:36 WBC 9.7 RBC 4.71 Hgb 15.1 Hct 44.7 MCV 94.9 MCH 32 MCHC 33.8 RDW 14.9 Plt Count 179 MPV 10.1 Neut % (Auto) 92.4 H Lymph % (Auto) 5.1 L [place] % (Auto) 1.2 L Eos % (Auto) 0.2 Baso % (Auto) 0.4 Neut # (Auto) 8.9 H Lymph # (Auto) 0.5 L Meeker # (Auto) 0.1 L Eos # (Auto) 0.0 Baso # (Auto) 0.0 Total Counted 100 Immature Gran % 0.7 Nucleated RBC % 0.0 Immature Gran # 0.07 Segmented Neutrophils 94 H Band Neutrophils 2 Lymphocytes 3 L Monocytes 1 L Nucleated RBCs # 0.00 Platelet Estimate Normal Immature Plt Fraction 0.0 D-Dimer, Quantitative Sodium 139 Potassium 3.6 Chloride 101 Carbon Dioxide 27 Anion Gap 14.6 BUN 28 H Creatinine 1.30 GFR Calculation 87 BUN/Creatinine Ratio 21.00 H Glucose 169 H POC Glucose Calculated Osmolality 286.5 Calcium 8.6 Magnesium 1.8 Total Bilirubin 0.50 AST 35 ALT 47 Alkaline Phosphatase 75 Total Creatine Kinase CK-MB (CK-2) Troponin I B-Natriuretic Peptide 15 Total Protein 6.9 Albumin 3.6 Globulin 3.3 Albumin/Globulin Ratio 1.0 L Triglycerides 125 Cholesterol 177 LDL Cholesterol 78.0 VLDL Cholesterol 25.0 HDL Cholesterol 72 H Heart Disease Risk Ratio 2.46
[2017-01-20] MEDS: CYCLOBENZAPRINE 10 MG TABLET PO SCH ×3 (12:06→21:14)
[2017-01-20] MEDS: guaiFENesin/CODEINE 5 ML LIQUID PO SCH ×4 (12:06→21:47)
[2017-01-20] MEDS: hydroCHLOROthiazide 25 MG TABLET PO SCH (12:20)
[2017-01-20] MEDS: BENZONATATE 100 MG CAPSULE PO SCH ×3 (12:20→21:14)
[2017-01-20] MEDS: MELOXICAM 7.5 MG TABLET PO SCH (12:20)
[2017-01-20] MEDS: DOCUSATE SODIUM 100 MG CAPSULE PO SCH ×2 (12:21→21:15)
[2017-01-20] MEDS: TAMSULOSIN 0.4 MG CAPSULE PO SCH (12:21)
[2017-01-20] MEDS: ALLOPURINOL 300 MG TABLET PO SCH (12:21)
[2017-01-20] MEDS: PANTOPRAZOLE 40 MG VIAL IV SCH (12:22)
[2017-01-20] MEDS: ENOXAPARIN 40 MG/0.4 ML SYRINGE SUBCUT SCH (12:22)
--- NOTE | 2017-01-20 12:24 | ECHO Report ---
Damian Santillan Exam Date: 01/20/2017 10:50 Referring Physician: Technologist: taras Sawant ARDMS, RVT Age: 66 Ht (in): 72 Wt (lb): 341 Gender: M Exam Location: [facility] Echo Indications: Syncope and collapse BP: 134 / 74 HR: Rhythm: Sinus Technical Quality: average IMPRESSIONS Overall ejection fraction is 55%. There is poor endocardial resolution which may limit regional wall assessment. Diastolic parameters are most consistent with grade 1 diastolic dysfunction or impaired relaxation. There is borderline mild left ventricular hypertrophy. No valvular abnormality MEASUREMENTS (Male / Female) Normal Values 2D ECHO LV Diastolic Diameter PLAX 5.3 cm 4.2 - 5.9 / 3.9 - 5.3 cm LV Systolic Diameter PLAX 3.1 cm LV Fractional Shortening PLAX 40.2 % IVS Diastolic Thickness 1.3 cm 0.6 - 1.0 / 0.6 - 0.9 cm LVPW Diastolic Thickness 1.1 cm 0.6 - 1.0 / 0.6 - 0.9 cm RV Internal Dim ED PLAX 4.0 cm Aortic Root Diameter 4.4 cm LA Systolic Diameter LX 3.9 cm 3.0 - 4.0 / 2.7 - 3.8 cm DOPPLER TR Peak Velocity 128.0 cm/s TR Peak Gradient 6.6 mmHg FINDINGS Left Ventricle Overall ejection fraction is 55%. There is no regional wall motion abnormality. There is poor endocardial resolution which may limit regional wall assessment. Diastolic parameters are most consistent with grade 1 diastolic dysfunction or impaired relaxation. There is borderline mild left ventricular hypertrophy Right Ventricle The right ventricular cavity is at the upper limits of normal the function is normal Right Atrium The left atrium is normal Left Atrium Left atrium is normal Mitral Valve The mitral valve is normal there is no stenosis or regurgitation Aortic Valve Normal with no stenosis or regurgitation Tricuspid Valve Normal. There is trivial tricuspid regurgitation with a peak velocity 1.28 m per sec which corresponds with a right ventricular systolic pressure of 7 mmHg plus right atrial pressure Pulmonic Valve Normal with no stenosis or regurgitation Pericardium Normal Aorta Limited visualization of the thoracic aorta is normal Shelia Hirsch (Electronically Signed) Final Date: 20 January 2017 12:23
[2017-01-20] MEDS: CHLORHEXIDINE 4% SOLN 118 ML BOTTLE TOP SCH (12:57)
--- NOTE | 2017-01-20 15:35 | EKG Report ---
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
[2017-01-21] MEDS: AMOXICILLIN/CLAV 500 MG TABLET PO SCH ×2 (00:39→09:11)
[2017-01-21 05:05] LABS: Basophils % 0.1 % (0.0-0.8); Hematocrit 43.6 VOL% (42.0-52.0); Hemoglobin 14.9 GM/DL (14.0-18.0); Immature Granulocytes Absolute 0.18 #; Lymphocytes # 0.7 10*3/uL (1.4-4.0); Lymphocytes % 3.6 % (21.2-54.2); Mean Corpuscular HGB Conc 34.2 GM/DL (32-36); Mean Corpuscular Hemoglobin 33 PG (27-34); Mean Corpuscular Volume 95.6 FL (87-102); Mean Platelet Volume 10.5 FL (9.6-12.0); Monocytes # 0.4 10*3/uL (0.11-0.8); Neutrophils # 17.5 10*3/uL (1.4-7.4); Neutrophils % 93.3 % (38.7-73.9); Platelet Count 194 T/CUMM (130-400); Red Blood Count 4.56 MC/CUMM (3.8-5.5); Red Cell Distribution Width 14.9 % (9.3-17.3); White Blood Count 18.7 T/CUMM (4-12)
[2017-01-21 05:30] LABS: Band Neutrophils 1 % (0-10); Hypochromasia 1+; Lymphocytes 4 % (20-55); Segmented Neutrophils 94 % (50-85); Total Cells Counted 100
[2017-01-21 05:31] LABS: Platelet Estimate Adequate
[2017-01-21 05:36] LABS: Calcium 8.3 MG/DL (8.5-10.1); Magnesium 2.1 MG/DL (1.8-2.4); Osmolality,Calculated 286.4 MOS/KG (273-304); Potassium 4.4 MMOL/L (3.5-5.1)
[2017-01-21] MEDS: methylPREDNISolone SOD SUC 40 MG/1 ML VIAL IV SCH (07:12)
[2017-01-21] MEDS: SODIUM CHLORIDE 0.9% 1,000 ML IV SCH (07:20)
[2017-01-21 08:53] VITALS: BP 155/80
[2017-01-21] MEDS: MELOXICAM 7.5 MG TABLET PO SCH (09:11)
[2017-01-21] MEDS: TAMSULOSIN 0.4 MG CAPSULE PO SCH (09:11)
[2017-01-21] MEDS: ALLOPURINOL 300 MG TABLET PO SCH (09:12)
[2017-01-21] MEDS: BENZONATATE 100 MG CAPSULE PO SCH (09:12)
[2017-01-21] MEDS: hydroCHLOROthiazide 25 MG TABLET PO SCH (09:12)
[2017-01-21] MEDS: guaiFENesin/CODEINE 5 ML LIQUID PO SCH (09:13)
[2017-01-21] MEDS: CYCLOBENZAPRINE 10 MG TABLET PO SCH (09:13)
[2017-01-21] MEDS: DOCUSATE SODIUM 100 MG CAPSULE PO SCH (09:13)
[2017-01-21] MEDS: CHLORHEXIDINE 4% SOLN 118 ML BOTTLE TOP SCH (09:14)
[2017-01-21] MEDS: PANTOPRAZOLE 40 MG VIAL IV SCH (09:14)
[2017-01-21] MEDS: ENOXAPARIN 40 MG/0.4 ML SYRINGE SUBCUT SCH (09:14)
--- NOTE | 2017-01-21 09:20 | Discharge Summary ---
Hospital Course - Hospital Course Hospital Course: Patient came to the hospital after having had 3 syncopal episodes. It was felt that these were vasovagal spells associated with acute, severe paroxysmal coughing episodes. Did have a full cardiology workup including an echocardiogram, carotid duplex as well as close monitoring. He did well throughout the hospitalization and had no further episodes. Remained in sinus rhythm. He never had any shay chest pain and enzymes remained grossly normal. Has been sleeping well in the hospital and not had any shortness of breath. At this time and planning on discharging him. 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 Is morbidly obese but has initiated workouts at home and I recommended he continue these at a slower pace and digital marketer weight. He did voice agreement. Is to follow with me in 2 weeks and also will follow with cardiology as directed. Appreciate cardiology's assistance on this case. We did let the patient go home and medications were given to him. I am going to treat him with antibiotics for several days as he had seen me in my clinic approximately 10 days ago with coughing, which was now recurrent and I am going to treat him for bronchitis. Diagnosis - Discharge Diagnosis (1) Bronchitis Status: Acute (2) Syncope and collapse Status: Resolved (3) Vasovagal syncope Status: Resolved Specialty Discharge - Follow Up or Referrals Follow up with: Devonte Acevedo DO [Primary Care Provider] - 02/03/17 1:00 pm (Return to clinic sooner than 2 weeks if symptoms worsen) Shelia Hirsch DO [Physician] - 1 Month (Discharge home with 30 day event monitor. Follow up with Dr. Hirsch in 1 month. ) Discharge Plan - Discharge Data Disposition: Disch To Home/Self Care Condition at Discharge: Stable Discharge Diet: advance to your usual diet Activity: increase activity as tolerated Hygiene: no restrictions Weight Bearing at Discharge: full weight bearing Driving: no restrictions Contact your physician if you experience:: fever over 101, Shortness of breath - Discharge Medications New Cyclobenzaprine [Flexeril] 10 mg PO BEDTIME PRN #20 tablet PRN Reason: muscle spasm Levofloxacin Tab [Levaquin Tab] 500 mg PO DAILY #8 tablet predniSONE TAB [PredniSONE] 10 mg PO DIRECTED #20 tablet Continue Tamsulosin [Flomax] 0.4 mg PO DAILY Acetaminophen Tab [Tylenol Tab] 650 mg PO Q6H PRN #0 tablet PRN Reason: Pain Mild (1-3) And/Or Fever Docusate Sodium Cap [Colace Cap] 100 mg PO DAILY #20 capsule Benzonatate 200 mg PO TID Codeine Phosphate/Guaifenesin [Guaifenesin-Codeine Syrup] 10 ml PO QID hydroCHLOROthiazide [Hydrochlorothiazide] 25 mg PO DAILY Alum/Mag/Simeth Max Str Liquid [Mylanta Max Strength Liquid] 15 ml PO Q6H PRN #0 udcup PRN Reason: Dyspepsia Chlorhexidine 4% Soln [Hibiclens] 1 applic TOP DAILY #118 ml Meloxicam [Mobic] 7.5 mg PO DAILY #30 tablet Allopurinol 300 mg PO DAILY Changed HYDROcodone/ACETAMIN 7.5-325 [[place] 7.5-325] 1 tablet PO BID PRN #30 tablet PRN Reason: Pain Moderate (4-7) Discontinued Amoxicillin/Clav Tab [Augmentin Tab] 500 mg PO Q8H 10 Days Cyclobenzaprine [Flexeril] 10 mg PO TID #30 tablet - Follow Up or Referral Follow Up: Devonte Acevedo DO [Primary Care Provider] - 02/03/17 1:00 pm (Return to clinic sooner than 2 weeks if symptoms worsen) Shelia Hirsch DO [Physician] - 1 Month (Discharge home with 30 day event monitor. Follow up with Dr. Hirsch in 1 month. ) - Forms/Instructions Instructions: Syncope (GEN), Acute Bronchitis (GEN) Exam - Constitutional Vitals: Period Temp Pulse Resp BP Sys/Jung Pulse Ox Last 24 Hr 97 F-98.6 F 64-87 18-22 132-163/60-83 94-98 Discharge Results Procedures and tests throughout hospitalization: Pending Orders 01/19/17 21:30 Urinalysis Stat 01/19/17 21:41 Blood Culture Stat Labs on day of discharge: Labs from last 24 hours 01/21/17 01/21/17 03:33 03:33 WBC 18.7 H D RBC 4.56 Hgb 14.9 Hct 43.6 MCV 95.6 MCH 33 MCHC 34.2 RDW 14.9 Plt Count 194 MPV 10.5 Neut % (Auto) 93.3 H Lymph % (Auto) 3.6 L [place] % (Auto) 2.0 Eos % (Auto) 0.0 Baso % (Auto) 0.1 Neut # (Auto) 17.5 H Lymph # (Auto) 0.7 L [place] # (Auto) 0.4 Eos # (Auto) 0.0 Baso # (Auto) 0.0 Total Counted 100 Immature Gran % 1.0 Nucleated RBC % 0.0 Immature Gran # 0.18 Segmented Neutrophils 94 H Band Neutrophils 1 Lymphocytes 4 L Monocytes 1 L Nucleated RBCs # 0.00 Platelet Estimate Adequate Immature Plt Fraction 0.0 Hypochromasia 1+ Sodium 140 Potassium 4.4 Chloride 105 Carbon Dioxide 27 Anion Gap 12.4 BUN 26 H Creatinine 1.30 GFR Calculation 87 BUN/Creatinine Ratio 20.00 Glucose 152 H Calculated Osmolality 286.4 Calcium 8.3 L Magnesium 2.1 Preliminary micro results at discharge 01/19/17 21:41 Blood Culture - Preliminary Blood No growth at 1 day 01/19/17 22:16 Blood Culture - Preliminary Blood No growth at 1 day - Imaging and Cardiology Cardiology Procedure: report reviewed by nd DS: Provider Date of admission: 01/19/17 23:30 Primary care physician: Devonte Acevedo DO Attending physician on admission: Devonte Acevedo DO Consults: 01/19/17 23:50 Consult to Case Mgmt/Social Srvs [CONS] Routine Reason for Case Mgmt/Social Srvs: Discharge Planning 01/20/17 06:34 Consult to Physician [CONS] Routine Comment: syncope Consulting Provider: Cardiology - [facility] Person Notified: [email or web address] Date Notified: 01/20/17 Time Notified: 07:30 Discharging clinician: Devonte Acevedo DO
== END 2017-01-21 11:17 | disposition home or self-care (01) | DRG 202 ==
LOC: N.ED 20:45 → N.EDINP 23:30 → N.TELEN 23:59
PROVIDERS: ADMIT Family Medicine; ATTEND Family Medicine

== ENCOUNTER 2019-03-26 14:32 | Observation (INO) ==
[2019-03-26] MEDS ORDERED: ACETAMINOPHEN 325 MG TABLET PO PRN (14:55)
[2019-03-26] MEDS ORDERED: DOCUSATE SODIUM 100 MG CAPSULE PO PRN (14:55)
[2019-03-26] MEDS ORDERED: ONDANSETRON 4 MG/2 ML VIAL IV PRN (14:55)
[2019-03-26] MEDS ORDERED: INFLUENZA VIRUS VACCINE 0.5 ML SYRINGE IM ONE (16:01)
[2019-03-26] MEDS: SODIUM CHLORIDE 0.9% 1,000 ML IV SCH (16:26)
[2019-03-26 16:43] LABS: Basophils # 0.1 10*3/uL (0.0-0.2); Basophils % 0.7 % (0.0-0.8); Eosinophils # 0.2 10*3/uL (0.0-0.87); Eosinophils % 2.6 % (0.00-10.9); Hematocrit 48.2 VOL% (42.0-52.0); Immature Granulocytes % 0.6 %; Immature Granulocytes Absolute 0.04 #; Lymphocytes # 1.3 10*3/uL (1.4-4.0); Lymphocytes % 17.4 % (21.2-54.2); Mean Corpuscular HGB Conc 33.2 GM/DL (32-36); Mean Corpuscular Volume 98.8 FL (87-102); Mean Platelet Volume 9.4 FL (9.6-12.0); Monocytes % 12.1 % (1.7-12.7); Neutrophils % 66.6 % (38.7-73.9); Platelet Count 238 T/CUMM (130-400); Red Blood Count 4.88 MC/CUMM (3.8-5.5); Red Cell Distribution Width 14.5 % (9.3-17.3); White Blood Count 7.3 T/CUMM (4-12)
[2019-03-26] MEDS ORDERED: DILTIAZEM 50 MG/10 ML VIAL IV ONE (17:10)
[2019-03-26 17:13] LABS: Albumin 3.2 G/DL (3.4-5.0); Bilirubin,Total 0.8 MG/DL (0.2-1.0); Calcium 8.8 MG/DL (8.5-10.1); Osmolality,Calculated 278.1 MOS/KG (273-304); Total Protein 7.4 G/DL (6.4-8.3)
[2019-03-26 17:24] LABS: Troponin I < 0.015 NG/ML (0.00-0.045)
[2019-03-26] MEDS: dilTIAZem Drip 125 MG/125 ML PREMIX IV SCH (17:49)
[2019-03-26] MEDS: HEPARIN DRIP 25,000 UNITS/500 ML PREMIX IV SCH (17:52)
[2019-03-26] MEDS: ASCORBIC ACID 500 MG TABLET PO SCH ×2 (19:04→21:04)
[2019-03-26] MEDS: SERTRALINE 50 MG TABLET PO SCH (21:04)
[2019-03-26] MEDS: BENZONATATE 100 MG CAPSULE PO SCH (21:04)
[2019-03-26] MEDS: DEXTROMETHORPHAN ER 6 MG/ML 90 ML/BOTTLE PO SCH (21:04)
[2019-03-26] MEDS: CLORAZEPATE 3.75 MG TABLET PO SCH (21:04)
[2019-03-26] MEDS: TAMSULOSIN 0.4 MG CAPSULE PO SCH (21:04)
[2019-03-27] MEDS: dilTIAZem Drip 125 MG/125 ML PREMIX IV SCH (04:21)
[2019-03-27 05:48] LABS: Basophils # 0.1 10*3/uL (0.0-0.2); Basophils % 0.9 % (0.0-0.8); Eosinophils # 0.2 10*3/uL (0.0-0.87); Eosinophils % 3.2 % (0.00-10.9); Hematocrit 44.8 VOL% (42.0-52.0); Hemoglobin 14.9 GM/DL (14.0-18.0); Immature Granulocytes % 0.5 %; Immature Granulocytes Absolute 0.03 #; Lymphocytes # 1.3 10*3/uL (1.4-4.0); Lymphocytes % 23.9 % (21.2-54.2); Mean Corpuscular HGB Conc 33.3 GM/DL (32-36); Mean Corpuscular Volume 98.5 FL (87-102); Mean Platelet Volume 9.2 FL (9.6-12.0); Monocytes % 10.9 % (1.7-12.7); Neutrophils % 60.6 % (38.7-73.9); Platelet Count 212 T/CUMM (130-400); Red Blood Count 4.55 MC/CUMM (3.8-5.5); Red Cell Distribution Width 14.5 % (9.3-17.3); White Blood Count 5.6 T/CUMM (4-12)
[2019-03-27 06:06] LABS: Calcium 8.6 MG/DL (8.5-10.1); Osmolality,Calculated 281.8 MOS/KG (273-304)
[2019-03-27] MEDS ORDERED: ALBUTEROL/IPRATROPIUM 3 ML NEB RESP TX PRN (08:11)
[2019-03-27] MEDS: DEXTROMETHORPHAN ER 6 MG/ML 90 ML/BOTTLE PO SCH ×2 (08:12→21:53)
[2019-03-27] MEDS: CLORAZEPATE 3.75 MG TABLET PO SCH ×2 (08:13→21:51)
[2019-03-27] MEDS: PANTOPRAZOLE 40 MG TABLET PO SCH (08:13)
[2019-03-27] MEDS: ASCORBIC ACID 500 MG TABLET PO SCH ×2 (08:13→21:51)
[2019-03-27] MEDS: hydroCHLOROthiazide 25 MG TABLET PO SCH (08:13)
[2019-03-27] MEDS: SERTRALINE 50 MG TABLET PO SCH (08:13)
[2019-03-27] MEDS: ASPIRIN EC 81 MG TABLET PO SCH (08:14)
[2019-03-27] MEDS: TAMSULOSIN 0.4 MG CAPSULE PO SCH ×2 (08:14→21:51)
[2019-03-27] MEDS: BENZONATATE 100 MG CAPSULE PO SCH ×2 (08:14→21:51)
[2019-03-27] MEDS: cefTRIAXone 1,000 MG in SYRINGE 1 EACH IV SCH (08:24)
[2019-03-27] MEDS: ALLOPURINOL 300 MG TABLET PO SCH (08:24)
[2019-03-27] MEDS: FLUTICASONE 50 MCG NASAL SPRAY 16 GM BOTTLE BOTH NARES SCH ×2 (10:22→21:53)
[2019-03-27] MEDS: METOPROLOL TARTRATE 25 MG TABLET PO SCH ×2 (12:21→21:51)
[2019-03-27] MEDS: SODIUM CHLORIDE 0.9% 1,000 ML IV SCH (12:22)
[2019-03-27] MEDS: HEPARIN 5,000 UNIT/1 ML VIAL IV PRN (21:51)
[2019-03-27] MEDS: HEPARIN DRIP 25,000 UNITS/500 ML PREMIX IV SCH (21:54)
[2019-03-28 02:20] LABS: Basophils # 0.1 10*3/uL (0.0-0.2); Eosinophils # 0.2 10*3/uL (0.0-0.87); Eosinophils % 2.9 % (0.00-10.9); Hematocrit 44.2 VOL% (42.0-52.0); Hemoglobin 14.6 GM/DL (14.0-18.0); Immature Granulocytes % 0.5 %; Immature Granulocytes Absolute 0.03 #; Lymphocytes # 1.5 10*3/uL (1.4-4.0); Lymphocytes % 23.9 % (21.2-54.2); Mean Corpuscular Volume 99.8 FL (87-102); Mean Platelet Volume 9.3 FL (9.6-12.0); Monocytes % 9.7 % (1.7-12.7); Platelet Count 203 T/CUMM (130-400); Red Blood Count 4.43 MC/CUMM (3.8-5.5); Red Cell Distribution Width 14.4 % (9.3-17.3); White Blood Count 6.3 T/CUMM (4-12)
[2019-03-28 02:34] LABS: Calcium 8.4 MG/DL (8.5-10.1); Osmolality,Calculated 281.7 MOS/KG (273-304)
[2019-03-28] MEDS: HEPARIN 5,000 UNIT/1 ML VIAL IV PRN (03:45)
[2019-03-28] MEDS: cefTRIAXone 1,000 MG in SYRINGE 1 EACH IV SCH (08:43)
[2019-03-28] MEDS: METOPROLOL TARTRATE 25 MG TABLET PO SCH ×2 (08:53→21:25)
[2019-03-28] MEDS ORDERED: PROPOFOL 200 MG/20 ML VIAL IV ONE (12:28)
[2019-03-28] MEDS ORDERED: LIDOCAINE 2% 5 ML VIAL ONE (12:28)
[2019-03-28] MEDS: BENZONATATE 100 MG CAPSULE PO SCH ×2 (13:15→21:24)
[2019-03-28] MEDS: CLORAZEPATE 3.75 MG TABLET PO SCH ×2 (13:16→21:25)
[2019-03-28] MEDS: hydroCHLOROthiazide 25 MG TABLET PO SCH (13:16)
[2019-03-28] MEDS: ALLOPURINOL 300 MG TABLET PO SCH (13:16)
[2019-03-28] MEDS: ASCORBIC ACID 500 MG TABLET PO SCH ×2 (13:16→21:24)
[2019-03-28] MEDS: TAMSULOSIN 0.4 MG CAPSULE PO SCH ×2 (13:16→21:24)
[2019-03-28] MEDS: ASPIRIN EC 81 MG TABLET PO SCH (13:16)
[2019-03-28] MEDS: SERTRALINE 50 MG TABLET PO SCH (13:17)
[2019-03-28] MEDS: PANTOPRAZOLE 40 MG TABLET PO SCH (13:17)
[2019-03-28] MEDS: FLUTICASONE 50 MCG NASAL SPRAY 16 GM BOTTLE BOTH NARES SCH ×2 (13:17→21:23)
[2019-03-28] MEDS: DEXTROMETHORPHAN ER 6 MG/ML 90 ML/BOTTLE PO SCH ×2 (13:18→21:28)
[2019-03-28] MEDS: SODIUM CHLORIDE 0.9% 1,000 ML IV SCH (18:55)
[2019-03-28] MEDS: APIXABAN 5 MG TABLET PO SCH (21:25)
[2019-03-29 04:44] LABS: Basophils # 0.1 10*3/uL (0.0-0.2); Basophils % 0.9 % (0.0-0.8); Eosinophils # 0.2 10*3/uL (0.0-0.87); Eosinophils % 2.8 % (0.00-10.9); Hematocrit 46.8 VOL% (42.0-52.0); Hemoglobin 15.4 GM/DL (14.0-18.0); Immature Granulocytes % 0.6 %; Immature Granulocytes Absolute 0.05 #; Lymphocytes % 22.9 % (21.2-54.2); Mean Corpuscular HGB Conc 32.9 GM/DL (32-36); Mean Corpuscular Volume 99.8 FL (87-102); Mean Platelet Volume 9.2 FL (9.6-12.0); Monocytes % 9.7 % (1.7-12.7); Neutrophils % 63.1 % (38.7-73.9); Platelet Count 231 T/CUMM (130-400); Red Blood Count 4.69 MC/CUMM (3.8-5.5); Red Cell Distribution Width 14.4 % (9.3-17.3); White Blood Count 8.7 T/CUMM (4-12)
[2019-03-29 05:06] LABS: Calcium 8.7 MG/DL (8.5-10.1); Osmolality,Calculated 279.7 MOS/KG (273-304)
[2019-03-29] MEDS: DEXTROMETHORPHAN ER 6 MG/ML 90 ML/BOTTLE PO SCH (08:46)
[2019-03-29] MEDS: BENZONATATE 100 MG CAPSULE PO SCH (08:47)
[2019-03-29] MEDS: hydroCHLOROthiazide 25 MG TABLET PO SCH (08:48)
[2019-03-29] MEDS: PANTOPRAZOLE 40 MG TABLET PO SCH (08:48)
[2019-03-29] MEDS: APIXABAN 5 MG TABLET PO SCH (08:48)
[2019-03-29] MEDS: TAMSULOSIN 0.4 MG CAPSULE PO SCH (08:48)
[2019-03-29] MEDS: SERTRALINE 50 MG TABLET PO SCH (08:48)
[2019-03-29] MEDS: ALLOPURINOL 300 MG TABLET PO SCH (08:48)
[2019-03-29] MEDS: CLORAZEPATE 3.75 MG TABLET PO SCH (08:49)
[2019-03-29] MEDS: ASCORBIC ACID 500 MG TABLET PO SCH (08:49)
[2019-03-29] MEDS: METOPROLOL TARTRATE 25 MG TABLET PO SCH (08:49)
[2019-03-29] MEDS: ASPIRIN EC 81 MG TABLET PO SCH (08:49)
[2019-03-29] MEDS: cefTRIAXone 1,000 MG in SYRINGE 1 EACH IV SCH (09:48)
[2019-03-29] MEDS: FLUTICASONE 50 MCG NASAL SPRAY 16 GM BOTTLE BOTH NARES SCH (09:54)
[2019-03-29 15:35] VITALS: BP 120/82
== END 2019-03-29 14:45 | disposition home or self-care (01) ==
LOC: N.TELES
PROVIDERS: ADMIT Family Medicine; ATTEND Family Medicine